=== PATIENT | male | born 1960 | race Two or more races ===

== ENCOUNTER 2017-01-08 13:15 | Emergency (ER) | payer MEDICARE, OTHER ==
[~2017-01-08 13:15] MED LIST: ASAB PO; BRILINTA90 MG PO; COREG3 PO; DIABET2.5 PO; FENOGLIDE40 MG PO; GLUCPH PO; LIPITOR40 PO; NORCO1 TA1 PO; NORV5 PO; PRIN2.5 PO; ZOCOR40 PO
== END 2017-01-08 13:27 | disposition home or self-care (01) ==
LOC: ER 13:15
PROC: 2W38X1Z Immobilization of Right Upper Extremity using Splint (ICD-10-PCS; principal; 2017-01-08)
DX: S62.324A Displaced fracture of shaft of fourth metacarpal bone, right hand, initial encounter for closed fracture (principal); S63.92XA Sprain of unspecified part of left wrist and hand, initial encounter; I10 Essential (primary) hypertension; E11.9 Type 2 diabetes mellitus without complications; F17.200 Nicotine dependence, unspecified, uncomplicated; Z79.899 Other long term (current) drug therapy; Z79.82 Long term (current) use of aspirin; Z79.84 Long term (current) use of oral hypoglycemic drugs; X50.1XXA Overexertion from prolonged static or awkward postures, initial encounter
CPT/HCPCS: 73130-50; 99283; A9270-GY